=== PATIENT | male | born 1970 | race Caucasian/White ===

== ENCOUNTER 2016-12-17 14:45 | Inpatient (IN) | payer OTHER ==
[~2016-12-17] VITALS: Ht 190.5 cm; Wt 88.0 kg
[2016-12-17 08:00] VITALS: BP 154/98
[~2016-12-17 14:45] MED LIST: ALBU18; FLUT115A2; LORA-655 PO; NOR10T PO
[2016-12-17] MEDS ORDERED: ALBUTEROL SULF 2.5 MG/0.5ML(0.5%) NEB SOLN NEB ONE (15:15)
[2016-12-17] MEDS ORDERED: LEVOFLOXACIN 750MG 150 ML IV ONE (15:15)
[2016-12-17] MEDS ORDERED: methylPREDNISolone SOD SUCC 125 MG/2 ML VL IV ONE (15:15)
[2016-12-17] MEDS ORDERED: IPRATROPIUM BROM 0.5 MG/2.5ML INH SOL NEB ONE (15:15)
[2016-12-17 15:23] LABS: Basophils # (auto) 0.1 uL; Basophils % (auto) 0.8 % (0.0-2.0); Eosinophils # (auto) 0.1 uL; Eosinophils % (auto) 1.9 % (0.0-7.0); Hematocrit 49.1 % (41.0-53.0); Hemoglobin 16.5 g/dL (13.5-17.5); Lymphocytes # (auto) 3.3 uL; Lymphocytes % (auto) 45.9 % (10.0-50.0); Mean Corpuscular Hemoglobin 32.5 pg (28.0-32.0); Mean Corpuscular Hgb Conc. 33.6 g/dL (32.0-36.0); Mean Corpuscular Volume 96.9 fL (80.0-100.0); Mean Platelet Volume 7.5 fL (7.4-10.4); Monocytes # (auto) 0.5 uL; Monocytes % (auto) 6.8 % (0.0-12.0); Neutrophils # (auto) 3.2 uL; Neutrophils % (auto) 44.6 % (37.0-80.0); Platelet Count (auto) 245 10^3/uL (140-450); Red Cell Distribution Width 13.5 % (11.6-16.0); White Blood Cell 7.3 10^3/uL (4.4-10.8)
[2016-12-17 15:41] LABS: Partial Thromboplastin Time 27.3 sec (22.64-33.71)
[2016-12-17 15:42] LABS: INR 1.22 (0.9-1.15); Prothrombin Time 12.6 sec (9.37-12.3)
[2016-12-17 15:59] LABS: BUN/Creatinine Ratio 11.1; Bilirubin, Total 0.7 mg/dL (0.2-1.0); Calcium 8.5 mg/dL (8.5-10.1); Potassium 3.9 mmol/L (3.5-5.1); Total Protein 7.9 g/dL (6.4-8.2)
[2016-12-17] MEDS ORDERED: LORazepam 2MG/ML-1ML VIAL ONE (16:00)
[2016-12-17 16:06] LABS: B-Type Natriuretic Peptide 27.99 pg/mL (0-100)
[2016-12-17] MEDS ORDERED: LORazepam 2MG/ML-1ML VIAL IV ONE (16:15)
[2016-12-17 16:25] LABS: Temperature: 22.3 C (20.0-25.0)
[2016-12-17] MEDS ORDERED: PROMETHAZINE HCL 25 MG/ML 1ML IV PRN (17:15)
[2016-12-17] MEDS ORDERED: ACETAMINOPHEN 500 MG TAB PO PRN (17:15)
[2016-12-17] MEDS ORDERED: LACTULOSE 20Gm/30ML SOLN PO PRN (17:15)
[2016-12-17] MEDS ORDERED: ALBUTEROL SULF 2.5 MG/0.5ML(0.5%) NEB SOLN NEB PRN (17:15)
[2016-12-17] MEDS ORDERED: NITROGLYCERIN 0.4 MG SL TAB SL PRN (17:30)
[2016-12-17] MEDS ORDERED: THIAMINE HCL 100 MG/ML 2ML VIAL IV ONE (17:30)
[2016-12-17] MEDS ORDERED: MORPHINE SULF INJ 2 MG/ML SYRINGE 1ML IV PRN (17:30)
[2016-12-17] MEDS: SODIUM CHLORIDE 0.9% 1,000 ML IV SCH (17:30)
[2016-12-17] MEDS: chlordiazePOXIDE HCL 5 MG CAP PO SCH ×2 (17:36→23:37)
[2016-12-17] MEDS: methylPREDNISolone SOD SUCC 40 MG/ML VL IV SCH ×2 (17:36→23:37)
[2016-12-17] MEDS: DOXYCYCLINE HYC 100MG/250ML 250 ML IV SCH ×2 (17:41→20:32)
[2016-12-17] MEDS ORDERED: OSELTAMIVIR 75 MG CAP PO ONE (17:45)
[2016-12-17] MEDS ORDERED: LORazepam 2MG/ML-1ML VIAL IV PRN (19:30)
[2016-12-17] MEDS: ALBUTEROL SULF 2.5 MG/0.5ML(0.5%) NEB SOLN NEB SCH (19:30)
[2016-12-17] MEDS: IPRATROPIUM BROM 0.5 MG/2.5ML INH SOL NEB SCH (19:30)
[2016-12-17 20:20] VITALS: BP 154/98
[2016-12-17] MEDS: LORazepam 0.5 MG TAB PO PRN (20:35)
[2016-12-17] MEDS: TEMAZEPAM 15 MG CAP PO PRN (21:25)
[2016-12-17 23:10] VITALS: BP 158/98
[2016-12-17] MEDS: HYDROcodone-ACET 5/325MG TAB PO PRN (23:26)
[2016-12-18] MEDS: IPRATROPIUM BROM 0.5 MG/2.5ML INH SOL NEB SCH ×4 (00:49→19:23)
[2016-12-18] MEDS: ALBUTEROL SULF 2.5 MG/0.5ML(0.5%) NEB SOLN NEB SCH ×4 (00:49→19:23)
[2016-12-18] MEDS: MORPHINE SULF INJ 2 MG/ML SYRINGE 1ML IV PRN (03:36)
[2016-12-18 05:00] VITALS: BP 129/87
[2016-12-18] MEDS: SODIUM CHLORIDE 0.9% 1,000 ML IV SCH ×2 (05:33→10:42)
[2016-12-18] MEDS: methylPREDNISolone SOD SUCC 40 MG/ML VL IV SCH ×2 (05:33→12:33)
[2016-12-18] MEDS: chlordiazePOXIDE HCL 5 MG CAP PO SCH ×3 (05:33→18:09)
[2016-12-18 06:15] LABS: Cholesterol 135 mg/dL (<200); HDL Cholesterol 66 mg/dL (40-59); LDL Cholesterol 69 mg/dL (<100); Triglycerides 49 mg/dL (<150)
[2016-12-18 08:30] VITALS: BP 136/90
[2016-12-18] MEDS ORDERED: LORazepam 2MG/ML-1ML VIAL IV PRN (08:30)
[2016-12-18] MEDS: HYDROcodone-ACET 5/325MG TAB PO PRN ×2 (08:50→22:16)
[2016-12-18] MEDS ORDERED: OSELTAMIVIR 75 MG CAP PO SCH (10:00)
[2016-12-18] MEDS: THIAMINE HCL 100 MG/ML 2ML VIAL IV SCH (10:41)
[2016-12-18] MEDS: THIAMINE INJ 100 MG, MULTIPLE VITAMIN 10 ML, FOLIC ACID 1 MG, MAGNESIUM SULF SDV 50% 8 ... IV SCH ×5 (12:33)
[2016-12-18 12:55] VITALS: BP 149/91
[2016-12-18 16:53] VITALS: BP 147/94
[2016-12-18] MEDS: LORazepam 0.5 MG TAB PO PRN (17:11)
[2016-12-18] MEDS: LEVOFLOXACIN 500 MG TAB PO SCH (18:13)
[2016-12-18] MEDS: BUDESONIDE (INHALATION) 0.5 MG/2 ML NEB NEB SCH (19:24)
[2016-12-18 22:00] VITALS: BP 142/89
[2016-12-18] MEDS: methylPREDNISolone SOD SUCC 125 MG/2 ML VL IV SCH (22:16)
[2016-12-18] MEDS: TEMAZEPAM 15 MG CAP PO PRN (22:16)
[2016-12-19] MEDS: chlordiazePOXIDE HCL 5 MG CAP PO SCH ×5 (00:40→23:45)
[2016-12-19] MEDS: IPRATROPIUM BROM 0.5 MG/2.5ML INH SOL NEB SCH ×4 (01:00→18:17)
[2016-12-19] MEDS: ALBUTEROL SULF 2.5 MG/0.5ML(0.5%) NEB SOLN NEB SCH ×4 (01:00→18:17)
[2016-12-19 05:30] VITALS: BP 131/81
[2016-12-19] MEDS: methylPREDNISolone SOD SUCC 125 MG/2 ML VL IV SCH ×3 (06:42→21:28)
[2016-12-19] MEDS: BUDESONIDE (INHALATION) 0.5 MG/2 ML NEB NEB SCH ×2 (06:53→18:18)
[2016-12-19] MEDS: HYDROcodone-ACET 5/325MG TAB PO PRN ×4 (07:14→20:17)
[2016-12-19 09:03] VITALS: BP 141/81
[2016-12-19] MEDS: SODIUM CHLORIDE 0.9% 1,000 ML IV SCH ×2 (09:05→22:25)
[2016-12-19 09:14] LABS: Albumin 3.7 g/dL (3.4-5.0); Bilirubin, Total 0.8 mg/dL (0.2-1.0); Total Protein 7.4 g/dL (6.4-8.2)
[2016-12-19 09:17] LABS: Bilirubin, Direct 0.3 mg/dL (0-0.2)
[2016-12-19] MEDS: THIAMINE HCL 100 MG/ML 2ML VIAL IV SCH (10:30)
[2016-12-19] MEDS: LORazepam 0.5 MG TAB PO PRN (10:30)
[2016-12-19] MEDS: LEVOFLOXACIN 500 MG TAB PO SCH (10:30)
[2016-12-19] MEDS: THIAMINE INJ 100 MG, MULTIPLE VITAMIN 10 ML, FOLIC ACID 1 MG, MAGNESIUM SULF SDV 50% 8 ... IV SCH ×5 (11:31)
[2016-12-19] MEDS: chlordiazePOXIDE HCL 25 MG CAP PO PRN (11:31)
[2016-12-19 12:00] VITALS: BP 125/86
[2016-12-19] MEDS: MORPHINE SULF INJ 2 MG/ML SYRINGE 1ML IV PRN (13:41)
[2016-12-19 17:20] VITALS: BP 147/75
[2016-12-19 20:37] VITALS: BP 141/78
[2016-12-19] MEDS: TEMAZEPAM 15 MG CAP PO PRN (21:28)
[2016-12-20] MEDS: IPRATROPIUM BROM 0.5 MG/2.5ML INH SOL NEB SCH ×5 (00:11→18:55)
[2016-12-20] MEDS: ALBUTEROL SULF 2.5 MG/0.5ML(0.5%) NEB SOLN NEB SCH ×5 (00:11→18:55)
[2016-12-20 04:32] VITALS: BP 121/65
[2016-12-20] MEDS: methylPREDNISolone SOD SUCC 125 MG/2 ML VL IV SCH ×3 (06:02→21:36)
[2016-12-20] MEDS: chlordiazePOXIDE HCL 5 MG CAP PO SCH ×3 (06:02→17:34)
[2016-12-20] MEDS: HYDROcodone-ACET 5/325MG TAB PO PRN ×2 (06:09→21:36)
[2016-12-20 09:00] VITALS: BP 129/77
[2016-12-20] MEDS: LEVOFLOXACIN 500 MG TAB PO SCH (10:22)
[2016-12-20] MEDS: THIAMINE HCL 100 MG/ML 2ML VIAL IV SCH (10:23)
[2016-12-20] MEDS: SODIUM CHLORIDE 0.9% 1,000 ML IV SCH (11:45)
[2016-12-20] MEDS: BUDESONIDE (INHALATION) 0.5 MG/2 ML NEB NEB SCH ×2 (11:56→18:55)
[2016-12-20 13:00] VITALS: BP 139/85
[2016-12-20] MEDS: chlordiazePOXIDE HCL 25 MG CAP PO PRN (13:00)
[2016-12-20] MEDS: MORPHINE SULF INJ 2 MG/ML SYRINGE 1ML IV PRN ×2 (13:01→17:34)
[2016-12-20] MEDS: guaiFENesin-DEXTROMETHORPHAN 5ML SYR GT PRN (13:02)
[2016-12-20] MEDS: THIAMINE INJ 100 MG, MULTIPLE VITAMIN 10 ML, FOLIC ACID 1 MG, MAGNESIUM SULF SDV 50% 8 ... IV SCH ×5 (14:03)
[2016-12-20 17:00] VITALS: BP 137/85
[2016-12-20] MEDS: LORazepam 0.5 MG TAB PO PRN (17:34)
[2016-12-20 20:58] VITALS: BP 137/85
[2016-12-20] MEDS: TEMAZEPAM 15 MG CAP PO PRN (21:36)
[2016-12-20 21:45] VITALS: BP 138/83
[2016-12-21] MEDS: chlordiazePOXIDE HCL 5 MG CAP PO SCH ×3 (00:07→11:44)
[2016-12-21 05:03] VITALS: BP 138/77
[2016-12-21] MEDS: ALBUTEROL SULF 2.5 MG/0.5ML(0.5%) NEB SOLN NEB SCH ×2 (05:34→10:00)
[2016-12-21] MEDS: IPRATROPIUM BROM 0.5 MG/2.5ML INH SOL NEB SCH ×2 (05:34→10:00)
[2016-12-21] MEDS: methylPREDNISolone SOD SUCC 125 MG/2 ML VL IV SCH (06:20)
[2016-12-21] MEDS: SODIUM CHLORIDE 0.9% 1,000 ML IV SCH (06:20)
[2016-12-21] MEDS: HYDROcodone-ACET 5/325MG TAB PO PRN ×2 (06:48→13:09)
[2016-12-21 09:00] VITALS: BP 129/77
[2016-12-21] MEDS: BUDESONIDE (INHALATION) 0.5 MG/2 ML NEB NEB SCH (10:00)
[2016-12-21] MEDS: LEVOFLOXACIN 500 MG TAB PO SCH (10:18)
[2016-12-21] MEDS: THIAMINE HCL 100 MG/ML 2ML VIAL IV SCH (10:18)
[2016-12-21] MEDS: MORPHINE SULF INJ 2 MG/ML SYRINGE 1ML IV PRN (10:31)
[2016-12-21] MEDS: guaiFENesin-DEXTROMETHORPHAN 5ML SYR GT PRN (11:54)
[2016-12-21 12:31] VITALS: BP 137/89
[2016-12-21 13:00] VITALS: BP 137/89
== END 2016-12-21 13:40 | disposition home or self-care (01) | DRG 140 ==
LOC: EDUNIT# 14:45 → ER 14:51 → TELE 14:52 → TELE-WESTW 20:01 → WEST WING 12-19 06:15
PROVIDERS: ADMIT Internal Medicine; ATTEND Internal Medicine
DX: J44.0 Chronic obstructive pulmonary disease with (acute) lower respiratory infection (principal); M41.9 Scoliosis, unspecified; I10 Essential (primary) hypertension; J44.1 Chronic obstructive pulmonary disease with (acute) exacerbation; J45.909 Unspecified asthma, uncomplicated; M19.90 Unspecified osteoarthritis, unspecified site; F41.9 Anxiety disorder, unspecified; F32.9 Major depressive disorder, single episode, unspecified; F17.210 Nicotine dependence, cigarettes, uncomplicated; G40.909 Epilepsy, unspecified, not intractable, without status epilepticus; F10.239 Alcohol dependence with withdrawal, unspecified; J20.9 Acute bronchitis, unspecified; R32 Unspecified urinary incontinence; R74.8 Abnormal levels of other serum enzymes; Z80.9 Family history of malignant neoplasm, unspecified; Z84.89 Family history of other specified conditions; Z79.899 Other long term (current) drug therapy; Z59.0 Homelessness; Z86.73 Personal history of transient ischemic attack (TIA), and cerebral infarction without residual deficits; Z98.890 Other specified postprocedural states
CPT/HCPCS: 36415; 70450; 70551; 71020; 80053; 80061; 80076; 80320; 82550; 82607; 82746; 83880; 84484; 85025; 85049; 85379; 85610; 85652; 85730; 86141; 87070; 87077; 87186; 87205; 87340; 87400; 93005; 94640; 94761; 95819; 96365; 96375; J1956; J3490

== ENCOUNTER 2018-07-12 12:30 | Emergency (ER) | payer OTHER ==
[~2018-07-12] VITALS: Ht 190.5 cm; Wt 89.8 kg
[2018-07-12 12:40] VITALS: BP 126/88
[2018-07-12 13:17] LABS: Basophils # (auto) 0 uL; Basophils % (auto) 0.5 % (0.0-2.0); Eosinophils # (auto) 0.1 uL; Eosinophils % (auto) 1.6 % (0.0-7.0); Hematocrit 50.2 % (41.0-53.0); Hemoglobin 17.1 g/dL (13.5-17.5); Lymphocytes # (auto) 3.2 uL; Lymphocytes % (auto) 51.4 % (10.0-50.0); Mean Corpuscular Hgb Conc. 34.2 g/dL (32.0-36.0); Mean Corpuscular Volume 96.6 fL (80.0-100.0); Monocytes # (auto) 0.4 uL; Monocytes % (auto) 7.2 % (0.0-12.0); Neutrophils # (auto) 2.4 uL; Neutrophils % (auto) 39.3 % (37.0-80.0); Nucleated Red Blood Cells % 0.1 %; Platelet Count (auto) 204 10^3/uL (140-450); Red Blood Cells 5.19 10^6/uL (4.5-5.90); Red Cell Distribution Width 13.1 % (11.8-14.3); White Blood Cell 6.1 10^3/uL (4.4-10.8)
[2018-07-12 13:36] LABS: Anion Gap 9 (5-15); Blood Urea Nitrogen 7 mg/dL (7-18); Carbon Dioxide 23 mmol/L (21-32); Chloride 112 mmol/L (98-107); Glucose 89 mg/dL (74-106); Potassium 4.3 mmol/L (3.5-5.1); Sodium 144 mmol/L (136-145)
[2018-07-12 13:37] LABS: Albumin 4.3 g/dL (3.4-5.0); Amylase 54 U/L (25-115); BUN/Creatinine Ratio 8.1; Calcium 8.4 mg/dL (8.5-10.1); GFR African American 122 mL/min; GFR Non-African American 101 mL/min; Lipase 223 U/L (73-393); Magnesium 2.3 mg/dL (1.6-2.6)
[2018-07-12 13:42] LABS: Alanine Aminotransferase 89 U/L (16-61); Alkaline Phosphatase 55 U/L (45-117); Aspartate Aminotransferase 60 U/L (15-37); Bilirubin, Total 0.5 mg/dL (0.2-1.0)
== END 2018-07-12 14:45 | disposition left against medical advice (07) ==
LOC: ER 12:30
DX: R10.84 Generalized abdominal pain (principal); R11.2 Nausea with vomiting, unspecified; F10.10 Alcohol abuse, uncomplicated; Z53.21 Procedure and treatment not carried out due to patient leaving prior to being seen by health care provider
CPT/HCPCS: 36415; 80053; 82150; 83690; 83735; 84484; 85025; 93005

== ENCOUNTER 2018-11-18 14:30 | Emergency (ER) | payer MEDICAID, OTHER ==
[~2018-11-18] VITALS: Ht 182.9 cm; Wt 67.7 kg
[2018-11-18] MEDS ORDERED: SODIUM CHLORIDE 0.9% 1,000 ML IVB ONE (14:33)
[2018-11-18] MEDS ORDERED: LORazepam 2MG/ML-1ML VIAL IV ONE (14:45)
[2018-11-18 15:07] LABS: Basophils # (auto) 0.1 uL; Basophils % (auto) 0.9 % (0.0-2.0); Eosinophils # (auto) 0.1 uL; Hematocrit 48.2 % (41.0-53.0); Hemoglobin 16.4 g/dL (13.5-17.5); Lymphocytes # (auto) 2.1 uL; Lymphocytes % (auto) 38.9 % (10.0-50.0); Mean Corpuscular Hemoglobin 33.5 pg (28.0-32.0); Mean Corpuscular Volume 98.6 fL (80.0-100.0); Monocytes # (auto) 0.4 uL; Monocytes % (auto) 7.2 % (0.0-12.0); Neutrophils # (auto) 2.8 uL; Nucleated Red Blood Cells % 0.4 %; Platelet Count (auto) 199 10^3/uL (140-450); Red Blood Cells 4.89 10^6/uL (4.5-5.90); Red Cell Distribution Width 13.3 % (11.8-14.3); White Blood Cell 5.4 10^3/uL (4.4-10.8)
[2018-11-18 15:13] LABS: Albumin 3.9 g/dL (3.4-5.0); BUN/Creatinine Ratio 8.7
[2018-11-18 15:14] LABS: Acetaminophen < 2.0 ug/mL (10-30)
[2018-11-18 15:16] LABS: Bilirubin, Total 0.4 mg/dL (0.2-1.0); Total Protein 7.7 g/dL (6.4-8.2)
[2018-11-18] MEDS ORDERED: ACETAMINOPHEN 325 MG TAB PO ONE (20:45)
[2018-11-18 20:48] LABS: Amphetamine Screen, Urine NEGATIVE (NEGATIVE); Barbiturate Scree,Urine NEGATIVE (NEGATIVE); Benzodiazephine Screen, Urine NEGATIVE (NEGATIVE); Cannabinoid Screen, Urine NEGATIVE (NEGATIVE); Cocaine Screen, Urine NEGATIVE (NEGATIVE); Opiate Scree,Urine NEGATIVE (NEGATIVE); Phencyclidine Screen, Urine NEGATIVE (NEGATIVE)
[2018-11-18] MEDS ORDERED: LORazepam 0.5 MG TAB PO ONE (22:45)
[2018-11-19] MEDS ORDERED: IPRATROPIUM BROM 0.5 MG/2.5ML INH SOL NEB ONE (08:00)
[2018-11-19] MEDS ORDERED: ALBUTEROL SULF 2.5 MG/0.5ML(0.5%) NEB SOLN NEB ONE (08:00)
[2018-11-19] MEDS ORDERED: LORazepam 0.5 MG TAB PO ONE (08:00)
[2018-11-20] MEDS ORDERED: LORazepam 0.5 MG TAB PO PRN (08:45)
[2018-11-20] MEDS ORDERED: SERTRALINE HCL 50 MG TAB PO SCH (10:00)
[2018-11-20 15:58] VITALS: BP 152/96
[2018-11-20] MEDS ORDERED: QUEtiapine FUMARATE 100 MG TAB PO SCH (22:00)
== END 2018-11-20 16:07 | disposition short-term general hospital (02) ==
LOC: EDBD 14:30 → ER 14:30
DX: R45.851 Suicidal ideations (principal); F10.229 Alcohol dependence with intoxication, unspecified; F41.9 Anxiety disorder, unspecified; F32.9 Major depressive disorder, single episode, unspecified; M19.90 Unspecified osteoarthritis, unspecified site; J44.9 Chronic obstructive pulmonary disease, unspecified; I10 Essential (primary) hypertension; F17.210 Nicotine dependence, cigarettes, uncomplicated; Z79.899 Other long term (current) drug therapy; Z86.73 Personal history of transient ischemic attack (TIA), and cerebral infarction without residual deficits
CPT/HCPCS: 36415; 80053; 80307; 80320; 80329; 85025; 93005; 94761; 96374; 99285; J2060; J7030

== ENCOUNTER 2019-02-02 22:20 | Emergency (ER) | payer MEDICAID ==
[~2019-02-02] VITALS: Ht 190.5 cm; Wt 99.8 kg
[2019-02-02 23:33] LABS: Albumin 4.4 g/dL (3.4-5.0); BUN/Creatinine Ratio 11.5; Calcium 8.5 mg/dL (8.5-10.1); Potassium 3.9 mmol/L (3.5-5.1)
[2019-02-02 23:39] LABS: Bilirubin, Total 0.5 mg/dL (0.2-1.0); Total Protein 8.3 g/dL (6.4-8.2)
[2019-02-02 23:41] LABS: Basophils # (auto) 0.1 uL; Basophils % (auto) 0.7 % (0.0-2.0); Eosinophils # (auto) 0.2 uL; Eosinophils % (auto) 2.8 % (0.0-7.0); Hematocrit 50.2 % (41.0-53.0); Hemoglobin 17.4 g/dL (13.5-17.5); Lymphocytes # (auto) 4.7 uL; Lymphocytes % (auto) 52.9 % (10.0-50.0); Mean Corpuscular Hemoglobin 33.5 pg (28.0-32.0); Mean Corpuscular Hgb Conc. 34.6 g/dL (32.0-36.0); Monocytes # (auto) 0.6 uL; Monocytes % (auto) 6.7 % (0.0-12.0); Neutrophils # (auto) 3.3 uL; Neutrophils % (auto) 36.9 % (37.0-80.0); Nucleated Red Blood Cells % 0.2 %; Platelet Count (auto) 216 10^3/uL (140-450); Red Blood Cells 5.18 10^6/uL (4.5-5.90); Red Cell Distribution Width 13.1 % (11.8-14.3); White Blood Cell 8.8 10^3/uL (4.4-10.8)
[2019-02-03 00:14] LABS: Salicylate 2.3 mg/dL (2.8-20.0)
[2019-02-03 00:21] LABS: Acetaminophen < 2.0 ug/mL (10-30)
[2019-02-03] MEDS ORDERED: LORazepam 2MG/ML-1ML VIAL IM ONE (03:30)
[2019-02-03 04:21] LABS: Urine Bacteria FEW /hpf (None Seen); Urine Blood Negative /uL (Negative); Urine Hyaline Cast FEW /lpf (0 - 2); Urine Mucus FEW (None Seen); Urine Specific Gravity 1.009 (1.001-1.035); Urine WBC <1 /hpf (0 - 3)
[2019-02-03 05:16] LABS: Amphetamine Screen, Urine NEGATIVE (NEGATIVE); Barbiturate Scree,Urine NEGATIVE (NEGATIVE); Benzodiazephine Screen, Urine NEGATIVE (NEGATIVE); Cannabinoid Screen, Urine NEGATIVE (NEGATIVE); Cocaine Screen, Urine NEGATIVE (NEGATIVE)
[2019-02-03 05:25] LABS: Opiate Scree,Urine NEGATIVE (NEGATIVE); Phencyclidine Screen, Urine NEGATIVE (NEGATIVE)
[2019-02-03] MEDS ORDERED: SODIUM CHLORIDE 0.9% 1,000 ML IV ONE (07:15)
[2019-02-03] MEDS ORDERED: METOPROLOL TARTRATE 50 MG TAB PO ONE (09:15)
[2019-02-03] MEDS ORDERED: HYDROcodone-ACET 7.5/325MG TAB PO ONE (09:45)
[2019-02-03 10:26] VITALS: BP 131/86
[2019-02-03] MEDS ORDERED: MULTIPLE VITAMIN 10 ML, MAGNESIUM SULF SDV 50% 8 MEQ in SODIUM CHLORIDE 0.9% 1,000 ML IV SCH (12:00)
== END 2019-02-03 13:53 | disposition home or self-care (01) ==
LOC: EDBD 22:20 → ER 22:27
DX: G92 Toxic encephalopathy (principal); F10.229 Alcohol dependence with intoxication, unspecified; J44.9 Chronic obstructive pulmonary disease, unspecified; M19.90 Unspecified osteoarthritis, unspecified site; I10 Essential (primary) hypertension; F17.210 Nicotine dependence, cigarettes, uncomplicated; Z79.899 Other long term (current) drug therapy; Z86.73 Personal history of transient ischemic attack (TIA), and cerebral infarction without residual deficits
CPT/HCPCS: 36415; 80053; 80307; 80320; 80329; 81001; 85025; 93005; 96365; 96366; 96372; 99284; J2060; J3475; J7030

== ENCOUNTER 2019-03-26 14:15 | Emergency (ER) | payer MEDICAID ==
[~2019-03-26] VITALS: Ht 190.5 cm; Wt 83.9 kg
[2019-03-26 14:24] VITALS: BP 113/75
[2019-03-26 15:18] LABS: Alanine Aminotransferase 78 U/L (16-61); Albumin 4.5 g/dL (3.4-5.0); Anion Gap 9 (5-15); Blood Urea Nitrogen 13 mg/dL (7-18); Calcium 8.6 mg/dL (8.5-10.1); Carbon Dioxide 22 mmol/L (21-32); Chloride 113 mmol/L (98-107); Glucose 78 mg/dL (74-106); Magnesium 2.2 mg/dL (1.6-2.6); Potassium 4.5 mmol/L (3.5-5.1); Sodium 144 mmol/L (136-145)
[2019-03-26 15:22] LABS: Basophils # (auto) 0 uL; Basophils % (auto) 0.6 % (0.0-2.0); Eosinophils # (auto) 0.1 uL; Eosinophils % (auto) 1.1 % (0.0-7.0); Hematocrit 50.5 % (41.0-53.0); Lymphocytes # (auto) 3.2 uL; Mean Corpuscular Hemoglobin 32.6 pg (28.0-32.0); Mean Corpuscular Hgb Conc. 33.6 g/dL (32.0-36.0); Monocytes # (auto) 0.5 uL; Monocytes % (auto) 6.9 % (0.0-12.0); Neutrophils # (auto) 3.8 uL; Neutrophils % (auto) 49.4 % (37.0-80.0); Nucleated Red Blood Cells % 0.2 %; Platelet Count (auto) 208 10^3/uL (140-450); White Blood Cell 7.6 10^3/uL (4.4-10.8)
[2019-03-26 15:23] LABS: Alkaline Phosphatase 56 U/L (45-117); Aspartate Aminotransferase 55 U/L (15-37); BUN/Creatinine Ratio 13.7; Bilirubin, Total 0.5 mg/dL (0.2-1.0); GFR African American 108 mL/min; GFR Non-African American 90 mL/min; Total Protein 8.2 g/dL (6.4-8.2)
== END 2019-03-26 16:40 | disposition left against medical advice (07) ==
LOC: EDBD 14:15 → EDUNIT# 14:15 → ER 14:26
DX: R07.89 Other chest pain (principal); F10.20 Alcohol dependence, uncomplicated; M19.90 Unspecified osteoarthritis, unspecified site; I10 Essential (primary) hypertension; F17.210 Nicotine dependence, cigarettes, uncomplicated; Z79.899 Other long term (current) drug therapy; Z95.1 Presence of aortocoronary bypass graft; Z53.29 Procedure and treatment not carried out because of patient's decision for other reasons
CPT/HCPCS: 36415; 71046; 80053; 80320; 83735; 84484; 85025; 93005

== ENCOUNTER 2019-04-02 07:43 | Emergency (ER) | payer MEDICAID ==
[~2019-04-02] VITALS: Ht 190.5 cm; Wt 99.8 kg
[2019-04-02 08:45] LABS: Basophils # (auto) 0.1 uL; Basophils % (auto) 1.2 % (0.0-2.0); Eosinophils # (auto) 0.1 uL; Hematocrit 48.2 % (41.0-53.0); Hemoglobin 16.8 g/dL (13.5-17.5); Lymphocytes # (auto) 1.8 uL; Lymphocytes % (auto) 41.8 % (10.0-50.0); Mean Corpuscular Hemoglobin 33.7 pg (28.0-32.0); Mean Corpuscular Hgb Conc. 34.9 g/dL (32.0-36.0); Mean Corpuscular Volume 96.5 fL (80.0-100.0); Monocytes # (auto) 0.3 uL; Monocytes % (auto) 7.2 % (0.0-12.0); Neutrophils % (auto) 47.8 % (37.0-80.0); Nucleated Red Blood Cells % 0.1 %; Platelet Count (auto) 160 10^3/uL (140-450); Red Blood Cells 4.99 10^6/uL (4.5-5.90); Red Cell Distribution Width 13.3 % (11.8-14.3); White Blood Cell 4.2 10^3/uL (4.4-10.8)
[2019-04-02] MEDS ORDERED: HYDROcodone-ACET 10/325MG TAB PO ONE (08:45)
[2019-04-02] MEDS ORDERED: ASPirin 81 mg TAB PO ONE (08:45)
[2019-04-02 09:01] LABS: Alanine Aminotransferase 243 U/L (16-61); Albumin 3.9 g/dL (3.4-5.0); Anion Gap 10 (5-15); Blood Urea Nitrogen 6 mg/dL (7-18); Calcium 8.2 mg/dL (8.5-10.1); Carbon Dioxide 22 mmol/L (21-32); Chloride 112 mmol/L (98-107); Glucose 108 mg/dL (74-106); Potassium 3.8 mmol/L (3.5-5.1); Sodium 144 mmol/L (136-145)
[2019-04-02 09:05] LABS: Alkaline Phosphatase 58 U/L (45-117); Aspartate Aminotransferase 236 U/L (15-37); Bilirubin, Total 0.6 mg/dL (0.2-1.0); GFR African American 162 mL/min; GFR Non-African American 134 mL/min; Total Protein 7.5 g/dL (6.4-8.2)
[2019-04-02] MEDS ORDERED: methylPREDNISolone SOD SUCC 125 MG/2 ML VL IM ONE (09:15)
[2019-04-02 09:35] VITALS: BP 124/74
== END 2019-04-02 11:04 | disposition home or self-care (01) ==
LOC: ER 07:43
DX: R07.89 Other chest pain (principal); R51 Headache; J45.909 Unspecified asthma, uncomplicated; I10 Essential (primary) hypertension; F17.210 Nicotine dependence, cigarettes, uncomplicated; Z95.1 Presence of aortocoronary bypass graft; Z79.899 Other long term (current) drug therapy
CPT/HCPCS: 36415; 71046; 80053; 84484; 85025; 93005; 96372; 99284; J2930

== ENCOUNTER → 2020-05-02 | Emergency (ER) | payer MEDICAID ==
[~2020-05-02] VITALS: Ht 190.5 cm; Wt 90.7 kg
[~2020-05-02] MED LIST changes: +LORazepam 2MG/ML-1ML VIAL IV ONE; +SODIUM CHLORIDE 0.9% 1,000 ML IV ONE
[2020-05-02 17:52] LABS: Basophils # (auto) 0 10 ^3/uL (0-0.2); Basophils % (auto) 0.6 % (0.0-2.0); Eosinophils # (auto) 0.1 10 ^3/uL (0-0.8); Monocytes # (auto) 0.5 10 ^3/uL (0-1.3); Neutrophils # (auto) 3.8 10 ^3/uL (1.6-8.6); Neutrophils % (auto) 49.4 % (37.0-80.0); Nucleated Red Blood Cells % 0.2 %
[2020-05-02 17:54] LABS: Eosinophils % (auto) 1.1 % (0.0-7.0); Hematocrit 51.2 % (41.0-53.0); Hemoglobin 17.7 g/dL (13.5-17.5); Lymphocytes # (auto) 3.2 10 ^3/uL (0.4-5.4); Mean Corpuscular Hemoglobin 33.8 pg (28.0-32.0); Mean Corpuscular Hgb Conc. 34.5 g/dL (32.0-36.0); Mean Corpuscular Volume 97.9 fL (80.0-100.0); Monocytes % (auto) 6.9 % (0.0-12.0); Platelet Count (auto) 259 10^3/uL (140-450); Red Blood Cells 5.23 10^6/uL (4.5-5.90); Red Cell Distribution Width 13.8 % (11.8-14.3); White Blood Cell 7.7 10^3/uL (4.4-10.8)
[2020-05-02 18:03] LABS: Albumin 3.8 g/dL (3.4-5.0); Calcium 8.1 mg/dL (8.5-10.1); Potassium 3.6 mmol/L (3.5-5.1)
[2020-05-02 18:06] LABS: BUN/Creatinine Ratio 7.4; Bilirubin, Total 0.5 mg/dL (0.2-1.0); Total Protein 7.4 g/dL (6.4-8.2)
[2020-05-02 19:28] VITALS: BP 136/99
== END | disposition home or self-care (01) ==
LOC: EDUNIT# 16:17 → ER 16:32 → EDBD 16:32
DX: F10.129 Alcohol abuse with intoxication, unspecified (principal); F41.9 Anxiety disorder, unspecified; J45.909 Unspecified asthma, uncomplicated; I10 Essential (primary) hypertension; F17.210 Nicotine dependence, cigarettes, uncomplicated; Z79.899 Other long term (current) drug therapy; Y90.8 Blood alcohol level of 240 mg/100 ml or more
CPT/HCPCS: 36415; 80053; 80320; 85025; 93005